=== PATIENT | male | born 1980 | race Caucasian/White ===

== ENCOUNTER 2024-04-10 20:53 | Emergency (ER) | payer OTHER, BC ==
[~2024-04-10] VITALS: Ht 167.6 cm; Wt 65.8 kg
--- NOTE | 2024-04-10 20:53 | NUR ---
pt adalberto hendrix pd for pre book clearance
[2024-04-10 20:56] VITALS: BP 138/83; PULSE 92; RESP 14; TEMP 98.2; O2SAT 99
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
== END 2024-04-10 21:16 ==
LOC: MED 20:53
DX: Z02.89 Encounter for other administrative examinations (principal); V49.9XXA Car occupant (driver) (passenger) injured in unspecified traffic accident, initial encounter; Y93.89 Activity, other specified; Y92.410 Unspecified street and highway as the place of occurrence of the external cause; Y99.8 Other external cause status
CPT/HCPCS: 99283